=== PATIENT | female | born 1955 | race Caucasian/White ===

== ENCOUNTER 2016-08-08 07:54 | Outpatient (CLI) ==
--- NOTE | 2016-08-08 09:15 | CT ---
EXAM: CT chest with contrast. HISTORY: Pulmonary nodule follow-up. COMPARISON: 10/27/2015. TECHNIQUE: Multiple axial images of the chest were obtained following intravenous administration of 75 mL of Omnipaque-300, low osmolar. Images were reformatted in the sagittal and coronal planes. FINDINGS: Nonenlarged mediastinal lymph nodes are present. Calcified mediastinal and hilar nodes a lso noted. Heart size is normal. There is no pericardial effusion. Calcified granulomatous changes noted. Noncalcified nodules in the right lung on axial images 18, 2 3 and 31 are stable, largest in the right upper lobe perihilar region on axial image 23. No new nod ules are seen. No pleural effusion or pneumothorax identified. Limited images of the upper abdomen demonstrate a stable right adrenal nodule. No acute osseous abn ormality identified. IMPRESSION: Stable right lung micronodules. Consider follow-up in 15 months to confirm 2-year stability.
== END 2016-08-08 07:55 | disposition home or self-care (01) ==
LOC: RAD 07:54
PROVIDERS: ATTEND Family Medicine
DX: R91.1 Solitary pulmonary nodule (principal)